=== PATIENT | female | born 1975 | race Caucasian/White ===

== ENCOUNTER 2024-12-05 14:30 | Outpatient (AMB) | payer OTHER, SELFPAY ==
--- NOTE | 2024-12-05 14:55 | GYNCLNT_ITS ---
Vital Signs 12/05/24 15:04 Height 1.73 m Height Method Stated Weight 104.893 kg Weight Measurement Method Standing Scale BMI 35.2 BP 131/85 H Blood Pressure Source Automatic Cuff Blood Pressure Location Right Upper Arm Position Sitting Respiration 17 Pulse 86 Pulse Source Monitor Temp 97.7 F Temp Source Temporal Artery Scan Pulse Oximetry (%) 95 Oxygen Delivery Method Room Air Allergies/Home Meds Allergies & Medications Allergies NKA Allergy (Unknown, Uncoded 12/05/24 14:55) Medication Reconciliation losartan 50 mg tablet 50 mg PO QDAY 12/08/24 [History] tirzepatide (weight loss) 5 mg/0.5 mL subcutaneous pen injector (Zepbound) 5 mg subcut QWEEK 12/08/24 [History] Intake Visit Data Collection New Patient or Established: New Patient (never been to [facility]) 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 Do You Feel Safe at Home: Yes Authorities Contacted: N/A PCP or OBGYN visit in last 3 months: No Hx Now: No Are you currently on any form of Control: No Last menstrual period: 11/22/24 Pain Present Currently: No Pain Scale Used: Vásquez-Nieves/Numerical Pain scale:: 0 Smoking Status Smoking Status: Never smoker 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 Menstrual regularity: irregular Flow: heavy Monthly: Yes How many days does period last: 7 Age at menarche: 13 Menopausal: No Currently sexually active: Yes INFORMAL WAITER/WAITRESS: Past Medical History Past Medical History: Yes Hx Hypertension Additional Operations/Hospitalizations (year & reason): x 2 Lap band 2009 Lap-Band revision 2010 Breast augmentation 2010 BTL Other Relevant History: On Zepbound for obesity Questionnaires Covid-19 Vaccine Questionnaire Has patient been vacinated for Covid-19 Have you been vacinated for Covid-19: Yes PHQ-9 PHQ-2 Over the last 2 weeks, how often have you been bothered by any of the following problems? 1. Little interest or pleasure in doing things: not at all 2. Feeling down, depressed, or hopeless: not at all Total score: 0 PHQ-9 3. Trouble falling or staying asleep, or sleeping too much: Not at all 4. Feeling tired or having little energy: Not at all 5. Poor appetite or overeating: Not at all 6. Feeling bad about yourself - or that you are a failure or have let yourself or your family down: Not at all 7. Trouble concentrating on things, such as reading the newspaper or watching television: Not at all 8. Moving or speaking so slowly that other people could have noticed? - Or the opposite - being so fidgety or restless that you have been moving around a lot more than usual: not at all 9. Thoughts that you would be better off or of hurting yourself in some way: Not at all Total score: 0 If you checked off any problems, how difficult have these problems made it for you to do your work, take care of things at home, or get along with other people?: not difficult at all Source: Developed by Drs. Irvin Lainez, Rosa M Rangel, Jayesh Domingo and colleagues, with an educational alma from [employer] Depression screen completed yes Social History Living Situation History Marital Status: Lives With: Spouse Housing: House Housing Other:: Works as an clinical advisor. 2 adult kids. 4 grands. Tobacco History Smoking Status: Never smoker Second Hand Smoke Exposure: No Alcohol History Alcohol Intake: Current Alcohol Intake Frequency: holidays/special occasions only Domestic Abuse History Do You Feel Safe at Home: Yes History of Present Illness HPI Narrative The patient is a 49-year-old -0-0-[address] Jauregui. Her last Pap was [address] Jauregui was considering an ablation and this never happened. She is having irregular cycles sometimes quite heavy. She reports occasional hot flashes and night sweats. She has had a tubal ligation for contraception. She is on losartan for high blood pressure Dr. Cathy Hamilton is her primary care. Patient has 2 adult children she has 4 grandchildren. She is . She works in . She has a history of a Lap-Band and a Lap-Band revision and sees Dr. Parks in [place]. He recently was put her on Zepbound. She states her weight is creeping up. I do not have any recent lab work or ultrasound on the patient she did not release her records from her previous site monitor. Patient is here for an annual exam and to discuss her cycles. Patient reports cycles are irregular sometimes heavy occasional hot flashes occasional night sweats Menstrual character: irregular in timing Gynecologic pain symptoms: Reports none Menopause concerns/symptoms: Reports hot flashes Review of Systems Genitourinary Genitourinary: Reports hot flashes Exam General Limitations: no limitations General Appearance: alert, in no apparent distress, comfortable, cooperative, healthy appearing and well groomed Neck Neck exam: Present normal inspection, full ROM and trachea midline Chest Chest inspection: Present normal inspection and symmetric chest wall rise Exp Chest Breast: bilateral: other (Normal breast exam bilaterally. Breast implants in place. Circumferential incision around the nipple from implants.) Resp Respiratory exam: Present normal lung sounds bilaterally Card Cardiovascular exam: Present regular rate, normal rhythm and normal heart sounds Abdominal Abdominal exam: Present soft and normal bowel sounds External exam: Present normal external exam (1-2+ cystocele present no significant uterine prolapse present) Speculum exam: Present normal speculum exam Bimanual exam: Present normal bimanual exam (Uterus anteverted not enlarged) Extremities Extremities exam: Present normal inspection and full ROM Psych Psychiatric exam: Present normal affect and normal mood Skin Skin exam: Present warm, dry, intact and normal color Office Procedures OB Clinic LOC & Office Proc's Nursing/Assessment Patient Status: Initial/New Patient OB Clinic Nursing Assessment: Medication Reconciliation, Update PMH in EMR and Vital Signs OB Clinic Coordination of Care: Complex Care and Chronic Disease 1-5, Consent,records obtained, informed consent, Education Simp Pt/Fam, Lab and Imaging orders and Staff clarify orders Special Needs: Heart tones Miscellaneous Interventions: Breast Exam New Patient Charge New Patient Point Assignment: 1159 New Patient Point Charge: FINANCIAL SYSTEMS ADMINISTRATOR Level 5 ([id number]-[id number]) In Clinic Procedures Pap Smear: Yes Assessment & Plan Diagnosis / Problem List (1) Encounter for Routine Gynecological Examination: Qualifiers: Gynecological examination findings: abnormal findings ABSENT Qualified Code(s): Z01.419 - Encounter for gynecological examination (general) (routine) without abnormal findings Assessment and Plan: Pap with cotesting to HPV performed, breast exam done encouraged. Mammogram ordered. (2) Menorrhagia, premenopausal: Status: Acute Plan Check CBC, check thyroid. Check pelvic ultrasound. If lining is thick perform endometrial biopsy I offered the patient a Mirena IUD versus an ablation. I told her I would lean more towards a Mirena IUD at her age. That way if she becomes more symptomatic in the menopause we can always add it in form of a patch pill ring or cream. If patient desires ablation we can authorize for this and perform it however if the patient is symptomatic in the menopause she will need progesterone also. Patient states she will think about options she was given information about a Mirena IUD and shown what this looks like. We will call her for follow-up once her lab work and ultrasound are back. RESEARCH METHODOLOGIST: Papsmear Pap Smear Procedure Chaparone in room during procedure?: No Pre-op diagnosis general: Annual wellness exam Post-op diagnosis procedure note: Same Procedure Notes:: Pap with cotesting to HPV performed Papsmear completed: yes
[2024-12-05 15:04] VITALS: BP 131/85; PULSE 86; RESP 17; TEMP 36.5; O2SAT 95; BMI 35.2
== END 2024-12-05 15:22 | disposition home or self-care (01) ==
LOC: HODSOBC 14:30
PROVIDERS: PCP Internal Medicine; Referring Provider Internal Medicine; Supervising Provider Obstetrics & Gynecology; Visit Provider Obstetrics & Gynecology
DX: Z01.411 Encounter for gynecological examination (general) (routine) with abnormal findings (principal); N81.10 Cystocele, unspecified; N92.4 Excessive bleeding in the premenopausal period; R23.2 Flushing; R61 Generalized hyperhidrosis; Z98.82 Breast implant status
CPT/HCPCS: 99205; Q0091; G0463

== ENCOUNTER → 2025-02-06 | Outpatient (CLI) | payer OTHER, SELFPAY ==
[2025-02-06 07:50] LABS: Collection Type, Urine Clean Catch
[2025-02-06 08:32] LABS: Bilirubin,Urine Negative (Negative); Blood,Urine 2+ (Negative); Calcium Oxalate Crystals,Urine 2+; Clarity,Urine Turbid (Clear/Hazy); Color,Urine Yellow (Lt Yel-Yel); Culture Indicated,Urine Not Indicated; Glucose, Urine Negative (Negative); Hyaline Casts,Urine < 1 /hpf (0-1); Ketones,Urine Negative (Negative); Leukocyte Esterase,Urine Negative (Negative); Nitrite,Urine Negative (Negative); PH,Urine 5.5 (5.0-7.0); Protein,Urine Trace (Neg - Trace); RBC,Urine 10 /hpf (0-3); Specific Gravity,Urine 1.029 (1.001-1.035); Squamous Epithelial Cell,Urine 1 /hpf (0-5); Urobilinogen,Urine Negative mg/dL (0.0-1.0); WBC,Urine 4 /hpf (0-5)
[2025-02-06 08:34] LABS: Basophils # (Auto) 0.1 Thou/mm3 (0.0-0.2); Basophils % (Auto) 1 % (0-2.5); Eosinophils # (Auto) 0.2 Thou/mm3 (0.0-0.5); Eosinophils % (Auto) 2 % (0-10); Hematocrit 43.2 % (36.0-46.0); Hemoglobin 14.3 g/dL (12.0-16.0); Immature Granulocytes Auto 0.03 Thou/mm3 (0.00-0.00); Lymphocytes # (Auto) 3.1 Thou/mm3 (1.0-4.8); Lymphocytes % (Auto) 31 % (10-50); Mean Corpuscular HGB Conc 33.1 g/dl (31.0-37.0); Mean Corpuscular Hemoglobin 29.9 pg (25.0-35.0); Mean Corpuscular Volume 90 fL (80-100); Monocytes # (Auto) 0.7 Thou/mm3 (0.0-0.8); Monocytes % (Auto) 7 % (0-12); Neutrophils # (Auto) 5.9 Thou/mm3 (1.8-7.7); Neutrophils % (Auto) 60 % (37-80); Nucleated Red Blood Cell # 0.00 Thou/mm3 (0.00-0.00); Nucleated Red Blood Cell % 0 /100 WBC (0); Platelet Count 314 Thou/mm3 (140-440); RDW Standard Deviation 43.4 fL (36.4-46.3); Red Blood Count 4.78 Miln/mm3 (4.00-5.20); White Blood Count 9.9 Thou/mm3 (3.6-11.0)
[2025-02-06 08:42] LABS: Glucose Estimated Average 108 mg/dL (80-131); Hemoglobin A1C 5.4 % Hgb (4.8-6.0)
[2025-02-06 08:52] LABS: Vitamin B12 679 pg/mL (211-911); Vitamin D 25 Hydroxy Total 44.4 ng/mL (7.3-40.2)
[2025-02-06 08:55] LABS: Alanine Aminotransferase 14 U/L (10-49); Albumin, Serum 4.5 gm/dL (3.5-5.0); Albumin/Globulin Ratio 2.1 (1.2-2.2); Alkaline Phosphatase 58 U/L (46-116); Anion Gap 8 (7-16); Aspartate Amino Transferase < 10 U/L (0-34); BUN/Creatinine Ratio 12 Ratio (12-20); Bilirubin,Total 0.4 mg/dL (0.3-1.2); Blood Urea Nitrogen 12 mg/dL (9-23); Calcium 9.7 mg/dL (8.3-10.6); Calcium (Corrected) 9.7 mg/dL (8.5-10.1); Carbon Dioxide 25.7 mMol/L (20.0-31.0); Cardiac Risk Estimate 3.2 RATIO (3.7-5.6); Chloride 108 mMol/L (98-107); Cholesterol 122 mg/dL (132-200); Creatinine (Component) 1.0 mg/dL (0.6-1.3); Globulin 2.1 gm/dL (2.3-3.5); Glucose 92 mg/dL (74-106); HDL Cholesterol 38 mg/dL (40-60); LDL Cholesterol,Calculated 71 mg/dL (0-130); Osmolality,Calculated 282 (275-295); Potassium 4.0 mMol/L (3.4-5.1); Sodium 142 mMol/L (136-145); Thyroid Stimulating Hormone 1.36 uIU/mL (0.55-4.78); Total Protein 6.6 gm/dL (5.7-8.2); Triglycerides 67 mg/dL (30-150); eGFR > 60 See Note
[2025-02-06 09:01] LABS: Iron 51 mcg/dL (50-170); Percent Iron Saturation 18 % (20-55); Total Iron Binding Capacity 272 mcg/dL (250-425); Unsaturated Iron Binding 221 (225-295)
== END | disposition home or self-care (01) ==
PROVIDERS: PCP Family Medicine; Referring Provider Registered Nurse; Visit Provider Registered Nurse
DX: I10 Essential (primary) hypertension (principal); L65.9 Nonscarring hair loss, unspecified; R79.89 Other specified abnormal findings of blood chemistry
CPT/HCPCS: 36415; 80053; 80061; 81001; 82306; 82607; 83036; 83540; 83550; 84443; 85025